=== PATIENT | male | born 1995 | race Caucasian/White ===

== ENCOUNTER 2017-08-12 12:03 | Emergency (ER) | payer SELFPAY ==
[~2017-08-12] VITALS: Ht 180.3 cm; Wt 70.0 kg
[~2017-08-12 12:03] MED LIST: BACTRIM DS1 TAB PO; BENTYL10 MG PO; NAPROSYN500 MG PO; TRANSDERM-SCOP1.5 MG TD
[2017-08-12 12:15] VITALS: BP 152/102
[2017-08-12] MEDS ORDERED: AUGMENTIN875TAB PO (13:17)
== END 2017-08-12 13:59 | disposition home or self-care (01) | DRG 605 ==
LOC: ED 12:03
DX: S01.452A Open bite of left cheek and temporomandibular area, initial encounter (principal); S61.253A Open bite of left middle finger without damage to nail, initial encounter; S61.255A Open bite of left ring finger without damage to nail, initial encounter; W54.0XXA Bitten by dog, initial encounter; Y93.89 Activity, other specified; Y92.009 Unspecified place in unspecified non-institutional (private) residence as the place of occurrence of the external cause

== ENCOUNTER 2021-11-17 09:04 | Emergency (ER) | payer BC ==
[~2021-11-17] VITALS: Ht 180.3 cm; Wt 90.0 kg
[~2021-11-17 09:04] MED LIST changes: +AUGMENTIN875TAB PO
[2021-11-17] MEDS ORDERED: AMOX/K CLAV875 M1 PO (09:47)
[2021-11-17 10:33] VITALS: BP 129/82
== END 2021-11-17 10:35 | disposition home or self-care (01) | DRG 153 ==
LOC: ED 09:04
DX: H66.92 Otitis media, unspecified, left ear (principal); F17.290 Nicotine dependence, other tobacco product, uncomplicated; Z87.820 Personal history of traumatic brain injury

== ENCOUNTER 2023-03-17 08:51 | Emergency (ER) | payer BC ==
[~2023-03-17] VITALS: Ht 180.3 cm; Wt 77.0 kg
[~2023-03-17 08:51] MED LIST changes: +AMOX/K CLAV875 M1 PO
[2023-03-17 09:00] VITALS: BP 123/88
[2023-03-17 09:15] VITALS: BP 129/84
[2023-03-17 09:30] VITALS: BP 136/83
[2023-03-17 09:45] VITALS: BP 117/85
[2023-03-17 10:00] VITALS: BP 127/79
[2023-03-17 10:55] VITALS: BP 127/79
== END 2023-03-17 10:59 | disposition home or self-care (01) | DRG 918 ==
LOC: ED 08:51
DX: T63.441A Toxic effect of venom of bees, accidental (unintentional), initial encounter (principal); F17.200 Nicotine dependence, unspecified, uncomplicated; Z20.822 Contact with and (suspected) exposure to COVID-19; Z87.820 Personal history of traumatic brain injury